=== PATIENT | male | born 1990 | race Caucasian/White ===

== ENCOUNTER 2024-09-12 01:27 | Emergency (ER) | payer OTHER, SELFPAY ==
[2024-09-12 01:30] VITALS: BP 141/105; PULSE 107; RESP 24; TEMP 36.1; O2SAT 98; BMI 20.9
--- NOTE | 2024-09-12 01:40 | ED_ITS ---
HPI - Medical Clearance General Chief complaint: Medical Clearance Stated complaint: fit for correction lymphedema Time Seen by Provider: 09/12/24 01:37 Source: patient Mode of arrival: Ambulatory History of Present Illness HPI Narrative: Patient is a 34-year-old male presenting today by police for medical clearance. Reports he is chronic lymphedema in both legs. His left leg is wrapped. He wraps it and dresses it every other day. He is never seen wound care. Reports that it is hereditary his mother has it as well. Admits to using fentanyl. No fever or chills. Related Information Previous Rx's Medication Instructions Recorded cephalexin 500 mg capsule 500 mg PO TID #21 caps 09/12/24 Patient History Social History Smoking Status: Current every day smoker Smoking Status: Current every day smoker tobacco type: cigarettes and vaping Exam Initial Vital Signs Initial Vital Signs: Vital Signs Temperature 97.0 F L 09/12/24 01:30 Pulse Rate 107 H 09/12/24 01:30 Respiratory Rate 24 09/12/24 01:30 Blood Pressure 141/105 H 09/12/24 01:30 Pulse Oximetry 98 09/12/24 01:30 Oxygen Delivery Method Room Air 09/12/24 01:30 GENERAL: Well-appearing, well-nourished and in no acute distress. CARDIOVASCULAR: peripheral pulses in tact, cap refill <2 sec RESPIRATORY: No respiratory distress, speaks in full sentences without difficulty EXTREMITIES: Normal range of motion, no clubbing or edema. Neurovascularly intact NEUROLOGICAL: Cranial nerves II through XII grossly intact. Normal gait and speech. SKIN: Left leg Kerlix is removed he has extremely dry thick flaky skin mildly erythematous. No significant wound Right leg no dry flaky skin minimally erythematous MDM - Medical Clearance MDM Narrative Medical decision making narrative: Patient has chronic lymphedema his dress her legs has been removed. It is extremely painful to remove it it is sticking to the skin. It is mildly erythematous. He was noted to be tachycardic over vitals were taken while I was removing the dressing. Leg is washed with soap and water new dressing placed. We will go ahead and start on Keflex because he is going to correction. Discharge Plan Departure Patient Disposition: Released, Other Clinical Impression: Lymphedema Instructions: Cellulitis Activity Restrictions/Additional Instructions: Fit for correction *You have been diagnosed with cellulitis/lymphedema *What to do: At this time do recommend that you see wound care when you are able to do so *Continue to take medications as directed Keflex 500 mg 3 times a day for 7 days *Follow up with your primary care provider in 2-3 days or call [phone] *Return to ER if you should have increasing pain and fever any new, worsening or concerning symptoms Prescriptions: New cephalexin 500 mg capsule 500 mg PO TID Qty: 21 0RF
[2024-09-12] MEDS: cephALEXin 250 MG CAP PREPACK 1 BOTTLE MISC (01:45)
[2024-09-12 02:37] VITALS: BP 136/88; PULSE 109; RESP 22; O2SAT 100
--- NOTE | 2024-09-12 02:38 | PC.NURSE ---
Left lower extremity below knee cleansed with antibacterial soap and water, wrapped with Zeroform, non-adherent gauze pads and Kerlix.
== END 2024-09-12 02:39 | disposition home or self-care (01) ==
PROVIDERS: Emergency Provider Emergency Medicine
DX: I89.0 Lymphedema, not elsewhere classified (principal)
CPT/HCPCS: 99281; 99283

== ENCOUNTER 2024-09-26 18:34 | Emergency (ER) | payer OTHER, SELFPAY ==
[2024-09-26 18:38] VITALS: BP 142/80; PULSE 125; RESP 22; TEMP 37.2; O2SAT 94; BMI 27.8
--- NOTE | 2024-09-26 21:37 | ED.SKABFB ---
HPI - Skin/Abscess/Foreign Bdy General Chief complaint: Skin/Abscess/Foreign Body Stated complaint: leg abcess and px Time Seen by Provider: 09/26/24 21:37 Source: patient Mode of arrival: Ambulatory Limitations: no limitations History of Present Illness HPI narrative: 34-year-old male without any significant past medical history comes into the ED from home for evaluation of possible infected leg/abscess. Patient states he was scratched his leg to his left about a month ago states that the skin is now peeling off, states he has been trying to keep it clean and bandage but it is getting worse. States he did not take any antibiotics prior to this or was seen by provider. He states that he was not sure what he cut his leg on. He denies any other systemic symptoms such as headache visual disturbances chest pain shortness breath fever chills nausea vomiting abdominal pain or any other GI/ symptoms at this time. Related Data Previous Rx's Medication Instructions Recorded cephalexin 500 mg capsule 500 mg PO TID #21 caps 09/12/24 doxycycline hyclate 100 mg capsule 100 mg PO BID 10 days #20 caps 09/27/24 Allergies Allergy/AdvReac Type Severity Reaction Status Date / Time fluoxetine [From Prozac] Allergy Hallucinati Verified 09/26/24 18:37 ng Review of Systems Review of Systems Narrative: General: Denies fever, chills, weight loss HEENT: Denies headache, eye drainage, eye irritation, head trauma, sore throat, voice change Cardiovascular: Denies any chest pain, palpitations, tachycardia Respiratory: Denies any shortness of breath, cough, wheeze, stridor GI/: Denies any abdominal pain, nausea, vomiting, diarrhea, bright red blood per rectum, melanotic stools, urinary frequency, urinary retention, dysuria, hematuria MSK: Denies any joint pain, muscle pains, swelling Skin: Positive left leg redness swelling Neuro: Denies any headache, lightheadedness, dizziness, fainting, weakness Psych: Denies SI/HI Patient History Social History Smoking Status: Current every day smoker Smoking Status: Current every day smoker tobacco type: cigarettes and vaping Exam Narrative Exam Narrative: General: Patient disheveled unkempt Cooperative, comfortable, well-developed, not in acute distress HEENT: Normocephalic, atraumatic, PERRLA, normal sclera, eyelids normal, Neck: Active full range of motion, atraumatic Chest: Normal to inspection, negative crepitus, no overlying erythema ecchymosis Respiratory: Normal respiratory effort, not in acute respiratory distress, clear to auscultation bilaterally negative cough, wheeze, tachypnea, rhonchi, rales Cardiology: Regular rate rhythm negative gallop, murmur, rubs GI/: Normal to inspection, soft, nonrigid, no tenderness to palpation, exam deferred MSK: Bilateral lower extremities neurovascularly intact there is erythema to bilateral lower extremity more consistent with peripheral vascular disease however there is some purulent/foul-smelling skin to the left extremity neurovascularly intact no crepitus patient is able to stand bear weight ambulate unassisted here in the emergency department Skin: No rashes lesions noted Neuro: Alert awake oriented x3, moves all 4 extremities spontaneously, cranial nerves intact, able to answer all questions appropriately follows commands appropriately Psych: Cooperative, negative suicidal or homicidal ideations Initial Vital Signs Initial Vital Signs: Vital Signs Temperature 99 F 09/26/24 18:38 Pulse Rate 125 H 09/26/24 18:38 Respiratory Rate 22 09/26/24 18:38 Blood Pressure 142/80 H 09/26/24 18:38 Pulse Oximetry 94 09/26/24 18:38 Oxygen Delivery Method Room Air 09/26/24 18:38 Course Orders Ordered: ED Orders 09/26/24 22:06 XR tibia fibula LT 2V Stat 09/26/24 22:50 BMP [Basic Metabolic Panel] Stat CBC Auto Diff [Complete Blood Count AUTO DIFF] Stat Lactate (Lactic Acid) Stat MAG [Magnesium] Stat 09/26/24 23:00 Blood Culture Stat Discontinued Medications Sodium Chloride (Normal Saline 0.9%) 1,000 mls @ 1,000 mls/hr IV BOLUS ONE Stop: 09/26/24 23:05 Last Infusion: 09/27/24 00:23 Dose: Infused Documented By: Admin: 09/26/24 23:06 Dose: 1,000 mls/hr Documented By: SILVIA Vancomycin HCl/Dextrose (Vancomycin) 2,000 mg in 400 mls @ 200 mls/hr IV NOW ONE Stop: 09/27/24 00:06 Last Admin: 09/26/24 23:07 Dose: 200 mls/hr Documented By: SILVIA Acetaminophen (Ofirmev) 1,000 mg in 100 mls @ 400 mls/hr IV NOW ONE Stop: 09/26/24 23:08 Last Infusion: 09/26/24 23:20 Dose: Infused Documented By: Admin: 09/26/24 23:06 Dose: 400 mls/hr Documented By: SILVIA Vital Signs Vital signs: Vital Signs - 8 hr 09/26/24 18:38 09/26/24 22:35 09/26/24 22:35 Temperature 99 F Pulse Rate 125 H 110 H Respiratory Rate 22 Blood Pressure 142/80 H 126/78 Pulse Oximetry 94 98 Oxygen Delivery Method Room Air 09/26/24 23:00 09/26/24 23:30 Temperature Pulse Rate 117 H 112 H Respiratory Rate 18 Blood Pressure Pulse Oximetry 98 97 Oxygen Delivery Method MDM - Skin/Abscess/Foreign Bdy Differential Diagnosis Differential diagnosis: Likely abscess of skin or subcutaneous tissue, contact dermatitis and other (Electrolyte abnormality) Lab Data 09/26/24 22:50 09/26/24 22:50 Labs: Lab Results 09/26/24 Range/Units 22:50 WBC 11.4 H (4.5-11.0) X10^3/uL RBC 4.26 L (4.5-5.9) X10^6/uL Hgb 11.1 L (13.5-17.5) g/dL Hct 34.1 L (41-53) % MCV 80.2 (80-100) fL MCH 26.2 (26-34) PG MCHC 32.6 (30-36) % RDW 15.9 H (11.6-14.8) % Plt Count 376 (150-400) X10^3/uL Neut % (Auto) 70.6 (50-75) % Lymph % (Auto) 16.1 L (25-40) % [place] % (Auto) 8.8 (3-14) % Eos % (Auto) 3.3 (2-4) % Baso % (Auto) 1.2 (0-2) % Neut # (Auto) 8100 H (4207-9025) /uL Lymph # (Auto) 1800 (4927-6440) /uL [place] # (Auto) 1000 H (0-900) /uL Eos # (Auto) 400 (0-450) /uL Baso # (Auto) 100 (0-100) /uL Sodium 136 L (137-145) mmol/L Potassium 4.0 (3.4-5.1) mmol/L Chloride 100 (98-107) mmol/L Carbon Dioxide 28 (22-32) mmol/L BUN 12 (9-20) mg/dL Creatinine 0.70 (0.66-1.25) mg/dL Estimated GFR > 60 (>60) mL/min BUN/Creatinine Ratio 17.1 (6-22) Glucose 96 (70-100) mg/dL Lactate 1.2 (0.7-2.1) mmol/L Calcium 9.4 (8.4-10.2) mg/dL Magnesium 1.9 (1.6-2.3) mg/dL Imaging Data Extremity x-ray #1: Radiologist's Impression: [address] [id number] XRay Report Signed Patient: Conor Madera I MR#: [id number] : 1990 Acct:[id number] Age/Sex: 34 / M Date of Service: 09/26/24 Loc: ED Accession Number: [id number] Procedure: XR tibia fibula LT 2V Ordering Provider: Jv Lora D.O. PROCEDURE: XR TIBIA FIBULA LT 2V INDICATIONS: swelling TECHNIQUE: 2 views of the tibia and fibula were acquired. COMPARISON: None. FINDINGS: Bones: No fractures or dislocations. No suspicious bony lesions. Soft tissues: No suspicious soft tissue calcifications or masses. No soft tissue gas visualized. IMPRESSION: No acute bony abnormality. MDM Narrative Medical decision making narrative: 34-year-old male with a past medical history of drug abuse, comes into the ED from home for evaluation of infection/redness to the left leg. Patient states that he cut it on something a proximally 1 month ago states that he has been covering it with wet paper towel since then but has had persistent redness and pain to the left leg, he states he does have a history of peripheral vascular disease to his lower extremity otherwise patient not complaining of any other symptoms on exam erythema with foul-smelling left lower extremity but no streaking no crepitus neurovascularly intact, x-ray without any signs of free air. Lab work with WBC of 11.4, Chem panel unremarkable lactate normal however patient is well-appearing nontoxic, lactate blood cultures were obtained, given severity of the left lower extremity erythema did offer admission to the hospital for IV antibiotics given patient meeting SIRS criteria however patient states he would rather go home with oral antibiotics, patient was given strict return precautions he verbalized understanding of this and agrees to being discharged home with outpatient follow up Discharge Plan Departure Patient Disposition: Home Clinical Impression: Cellulitis Instructions: DI for Cellulitis -- Adult Activity Restrictions/Additional Instructions: Please follow up with primary care in outpatient setting Please return to the emergency department immediately if the symptoms get worse Please read the discharge instructions sheet carefully and bring all papers to all doctor follow-up visits, as it may contain information that your doctor may want to see. Disease processes change and evolve, if your symptoms worsen or if you develop any new symptoms that are concerning to you please return for evaluation. Your evaluation today does not show any evidence of any life-threatening/serious illnesses requiring admission to the hospital or surgery. Please follow-up with your doctor for re-evaluation in approximately 1 day. Seek immediate medical attention for any worrisome symptoms. *If you do not have a primary care provider please contact the [facility] Resource line at [phone]. They will ask some questions about your medical history and help get you set up with a doctor in the community. Prescriptions: New doxycycline hyclate 100 mg capsule 100 mg PO BID 10 Days Qty: 20 0RF No Action cephalexin 500 mg capsule 500 mg PO TID Qty: 21 0RF Referrals: Miscellaneous,Doctor[facility] [Primary Care Provider] - Stand Alone Forms: Patient Portal/API/Survey
--- NOTE | 2024-09-26 22:06 | DI.RAD.S_ITS ---
PROCEDURE: XR TIBIA FIBULA LT 2V INDICATIONS: swelling TECHNIQUE: 2 views of the tibia and fibula were acquired. COMPARISON: None. FINDINGS: Bones: No fractures or dislocations. No suspicious bony lesions. Soft tissues: No suspicious soft tissue calcifications or masses. No soft tissue gas visualized. IMPRESSION: No acute bony abnormality. Approved by: Grace Castle M.D.,Ph.D. on 09/26/2024 at 23:23
[2024-09-26 22:35] VITALS: BP 126/78; PULSE 110; O2SAT 98
[2024-09-26 23:00] VITALS: PULSE 117; O2SAT 98
[2024-09-26] MEDS: ACETAMINOPHEN IV 1,000 MG/100 ML VIAL 400 MG IV (23:06)
[2024-09-26] MEDS: SODIUM CHLORIDE 0.9% 1,000 ML 1000 ML IV (23:06)
[2024-09-26] MEDS: VANCOMYCIN 2,000 MG/400 ML PIGGYBACK 200 MG IV (23:07)
[2024-09-26 23:10] LABS: Add Manual Diff / Slide Review NO; Basophils Absolute Auto 100 /uL (0-100); Basophils Percent Auto 1.2 % (0-2); Eosinophils Absolute Auto 400 /uL (0-450); Eosinophils Percent Auto 3.3 % (2-4); Hematocrit 34.1 % (41-53); Hemoglobin 11.1 g/dL (13.5-17.5); Lymphocytes Absolute Auto 1800 /uL (1100-4500); Lymphocytes Percent Auto 16.1 % (25-40); Mean Corpuscular HGB Conc 32.6 % (30-36); Mean Corpuscular Hemoglobin 26.2 PG (26-34); Mean Corpuscular Volume 80.2 fL (80-100); Monocytes Absolute Auto 1000 /uL (0-900); Monocytes Percent Auto 8.8 % (3-14); Neutrophils Absolute Auto 8100 /uL (1500-7000); Neutrophils Percent Auto 70.6 % (50-75); Platelet Count 376 X10^3/uL (150-400); Red Blood Cell Count 4.26 X10^6/uL (4.5-5.9); Red Cell Distribution Width 15.9 % (11.6-14.8); White Blood Cell Count 11.4 X10^3/uL (4.5-11.0)
[2024-09-26 23:23] LABS: BUN Creatinine Ratio 17.1 (6-22); Blood Urea Nitrogen 12 mg/dL (9-20); Calcium 9.4 mg/dL (8.4-10.2); Carbon Dioxide 28 mmol/L (22-32); Chloride 100 mmol/L (98-107); Estimated Glomerular Filt Rate > 60 mL/min (>60); Glucose 96 mg/dL (70-100); HEMOLYSIS < 15 (0-50); Lactate (Lactic Acid) 1.2 mmol/L (0.7-2.1); Magnesium 1.9 mg/dL (1.6-2.3); Sodium 136 mmol/L (137-145)
[2024-09-26 23:30] VITALS: PULSE 112; RESP 18; O2SAT 97
[2024-09-27 01:15] VITALS: PULSE 114; O2SAT 99
[2024-09-27 01:25] VITALS: BP 124/69
== END 2024-09-27 01:26 | disposition home or self-care (01) ==
PROVIDERS: Emergency Provider Student in an Organized Health Care Education/Training Program
DX: L03.116 Cellulitis of left lower limb (principal)
CPT/HCPCS: 36415; 73590; 80048; 83605; 83735; 85025; 87040; 96365; 96366; 96368; 99284; J0134